=== PATIENT | female | born 1965 | race Caucasian/White ===

== ENCOUNTER 2017-04-21 03:36 | Inpatient (IN) | payer SELFPAY ==
[2017-04-21] MEDS ORDERED: Sodium Chloride 0.9% 1,000 ML IV ONE (03:58)
[2017-04-21] MEDS ORDERED: Ketorolac 30 MG/ML SDV IVPUSH ONE (04:00)
[2017-04-21] MEDS ORDERED: Ondansetron 4 MG/2 ML SDV IVPUSH ONE (04:01)
[2017-04-21] MEDS ORDERED: Morphine 2 MG/ML Syringe IVPUSH ONE (04:42)
[2017-04-21] MEDS ORDERED: Iopamidol 755 Mg/ML 100 ML Bottle IV SCH (05:15)
--- NOTE | 2017-04-21 06:15 | EDM.PDOC ---
ED HPI GENERAL MEDICAL PROBLEM - General Chief Complaint: Abdominal Pain Stated Complaint: ADB PAIN Time Seen by Provider: 04/21/17 03:40 Source of Information: Reports: Patient, Family - History of Present Illness INITIAL COMMENTS - FREE TEXT/NARRATIVE: 51 y.old w f S/P Total Hysterectomy, last Colonoscopy 3 years ago. came to the ed due to sudden onset of periumbilical pain with N/V. Pt is not able pass gas, but stool. No Dysuria, no F/C, no trauma. 143/83 pulse 62 No blood in stool. Onset: Today Onset Date: 04/20/17 Onset Time: 16:00 Duration: Hour(s): Location: Reports: Abdomen Quality: Reports: Ache, Burning, Dull, Pressure, Throbbing Severity: Moderate Improves with: Reports: Rest Worsens with: Reports: Movement Context: Reports: Other (?) Associated Symptoms: Reports: Nausea/Vomiting Treatments [employer]GER [employer]: Reports: NSAIDS, Other (see below) Other Treatments [employer]GER [employer]: pepto-bismol Abdomen Pain Score (Numeric/FACES): 10 - Related Data Allergies Allergy/AdvReac Type Severity Reaction Status Date / Time No Known Allergies Allergy Verified 04/21/17 03:52 Home Meds: Home Meds Levothyroxine [Synthroid] 50 mcg PO ACBREAKFAST 04/21/17 [History] Past Medical History Endocrine/Metabolic History: Reports: Hypothyroidism - Past Surgical History HEENT Surgical History: Reports: Tonsillectomy, Other (See Below) Other HEENT Surgeries/Procedures: [place] teeth extraction Social & Family History - Family History Family Medical History: Noncontributory - Tobacco Use Smoking Status *Q: Never Smoker - Caffeine Use Caffeine Use: Reports: None - Recreational Drug Use Recreational Drug Use: No ED ROS GENERAL - Review of Systems Review Of Systems: See Below Constitutional: Reports: No Symptoms HEENT: Reports: No Symptoms Respiratory: Reports: No Symptoms Cardiovascular: Reports: No Symptoms Endocrine: Reports: No Symptoms GI/Abdominal: Reports: Abdominal Pain : Reports: No Symptoms Musculoskeletal: Reports: No Symptoms Skin: Reports: No Symptoms Neurological: Reports: No Symptoms Psychiatric: Reports: No Symptoms Hematologic/Lymphatic: Reports: No Symptoms Immunologic: Reports: No Symptoms ED EXAM, GI/ABD - Physical Exam Exam: See Below Exam Limited By: No Limitations General Appearance: Alert, WD/WN, Moderate Distress Eyes: Bilateral: Normal Appearance Ears: Normal External Exam Nose: Normal Inspection Throat/Mouth: Normal Inspection Head: Atraumatic, Normocephalic Neck: Normal Inspection, Supple Respiratory/Chest: No Respiratory Distress, Lungs Clear, Normal Breath Sounds Cardiovascular: Normal Peripheral Pulses, Regular Rate, Rhythm, No Edema, No Gallop, No JVD GI/Abdominal Exam: Distended, Abnormal Bowel Sounds (Female) Exam: Deferred Rectal (Female) Exam: Deferred Back Exam: Normal Inspection, Full Range of Motion Extremities: Normal Inspection, Normal Range of Motion, Non-Tender, No Pedal Edema Neurological: Alert, Oriented, CN II-XII Intact, Normal Cognition, Normal Gait Psychiatric: Normal Affect, Normal Mood Skin Exam: Warm, Dry, Intact, Normal Color, No Rash Lymphatic: No Adenopathy Course - Vital Signs Text/Narrative:: 51 y.old w f S/P Total Hysterectomy, last Colonoscopy 3 years ago. came to the ed due to sudden onset of periumbilical pain with N/V. Pt is not able pass gas, but stool. No Dysuria, no F/C, no trauma. 143/83 pulse 62 No blood in stool. PE: Mid abd. pain with hyperactive BS Labs: WBC 12.5 H?H nl Na 149 K 3.7 BUN 21 Cr. 1.0 Imaging: CT abd. SMO with thick walled collapsed segment of Terminal Ileum Impression: SMO with thick walled collapsed segment of Terminal Ileum Tx: Zofran, Morphin and NG tube with low volume suction, intermittent 6.[address] Monsivais, surgeon: Will see pt at the [facility], NG tube with low volume suction Plan: Admit t o [facility]. Last Recorded V/S: Last Vital Signs Temp 36.6 C 04/21/17 05:31 Pulse 71 04/21/17 05:31 Resp 18 04/21/17 05:31 BP 122/66 04/21/17 05:31 Pulse Ox 100 04/21/17 05:31 - Orders/Labs/Meds Orders: Active Orders 24 hr Category Date Time Status Patient Status [ADT] Routine ADT 04/21/17 06:16 Ordered Bedrest Bedside Commode [RC] ASDIRECTED Care 04/21/17 06:16 Ordered Oxygen Therapy [RC] PRN Care 04/21/17 06:16 Ordered VTE/DVT Education [RC] Per Unit Routine Care 04/21/17 06:16 Ordered Vital Signs [RC] Q4H Care 04/21/17 06:16 Ordered Nothing per Oral Now Diet [DIET] Diet 04/21/17 Breakfast Ordered Abdomen Pelvis w Cont [CT] Stat Exams 04/21/17 04:28 Taken NG Tube Placement [CR] Stat Exams 04/21/17 06:21 Ordered Iopamidol [Isovue-370 (76%)] Med 04/21/17 05:15 Active 100 ml IV . DIRECTED Lactated Ringers @ 125 MLS/HR(1000ml) Med 04/21/17 06:30 Ordered Lactated Ringers [Ringers, Lactated] 1,000 ml IV ASDIRECTED Morphine Med 04/21/17 06:16 Ordered 2 mg IVPUSH Q2H PRN Ondansetron [Zofran] Med 04/21/17 06:16 Ordered 8 mg IV Q4H PRN Sodium Chloride 0.9% [Saline Flush] Med 04/21/17 06:16 Ordered 10 ml FLUSH ASDIRECTED PRN Peripheral IV Insertion Adult [OM.PC] Routine Oth 04/21/17 06:16 Ordered Resuscitation Status Routine Resus Stat 04/21/17 06:16 Ordered Medication Orders Lactated Ringer's (Ringers, Lactated) 1,000 mls @ 125 mls/hr IV ASDIRECTED WANDA Iopamidol (Isovue-370 (76%)) 100 ml IV . DIRECTED WANDA Last Admin: 04/21/17 05:15 Dose: 84 ml Morphine Sulfate (Morphine) 2 mg IVPUSH Q2H PRN PRN Reason: Pain (severe 7-10) Ondansetron HCl (Zofran) 8 mg IV Q4H PRN PRN Reason: Nausea/Vomiting Sodium Chloride (Saline Flush) 10 ml FLUSH ASDIRECTED PRN PRN Reason: Keep Vein Open Labs: Laboratory Tests 04/21/17 04/21/17 04/21/17 Range/Units 04:05 04:05 04:30 WBC 12.2 H (4.5-12.0) X10-3/uL RBC 4.19 (3.23-5.20) x10(6)uL Hgb 13.4 (11.5-15.5) g/dL Hct 38.6 (30.0-51.3) % MCV 92.1 (80-96) fL MCH 31.9 (27.7-33.6) pg MCHC 34.6 (32.2-35.4) g/dL RDW 12.3 (11.5-15.5) % Plt Count 236 (125-369) X10(3)uL MPV 8.4 (7.4-10.4) fL Neut % (Auto) 78.4 (46-82) % Lymph % (Auto) 15.2 (13-37) % [place] % (Auto) 5.2 (4-12) % Eos % (Auto) 1 (1.0-5.0) % Baso % (Auto) 0 (0-2) % Neut # (Auto) 9.6 H (1.6-8.3) # Lymph # (Auto) 1.9 (0.6-5.0) # [place] # (Auto) 0.6 (0.0-1.3) # Eos # (Auto) 0.1 (0.0-0.8) # Baso # (Auto) 0.0 (0.0-0.2) # Sodium 138 (135-145) mmol/L Potassium 3.7 (3.5-5.3) mmol/L Chloride 108 (100-110) mmol/L Carbon Dioxide 20 L (23-29) mmol/L BUN 21 H (5-20) mg/dL Creatinine 1.0 (0.6-1.3) mg/dL Est Cr Clr Drug Dosing 63.27 mL/min Estimated GFR (MDRD) 58 L (>60) BUN/Creatinine Ratio 21.0 H (9-20) Glucose 136 H (80-116) mg/dL Calcium 9.3 (8.6-10.2) mg/dL Urine Color Yellow (YELLOW) Urine Appearance Clear (CLEAR) Urine pH 7.0 H (5.0-6.5) Ur Specific [place] 1.010 (1.010-1.025) Urine Protein Negative (NEGATIVE) mg/dL Urine Glucose (UA) Normal (NEGATIVE) mg/dL Urine Ketones Negative (NEGATIVE) mg/dL Urine Occult Blood Negative (NEGATIVE) Urine Nitrite Negative (NEGATIVE) Urine Bilirubin Negative (NEGATIVE) Urine Urobilinogen Normal (NEGATIVE) mg/dL Ur Leukocyte Esterase Negative (NEGATIVE) Urine RBC 0-5 (0) Urine WBC 0-5 (0) Ur Squamous Epith Cells Occasional (NS,R,O) Urine Bacteria Rare H (NS) Meds: Medications Generic Name Dose Route Start Last Admin Trade Name [place] PRN Reason Stop Dose Admin Lactated Ringer's 1,000 mls @ 125 mls/hr 04/21/17 06:30 Ringers, Lactated IV ASDIRECTED WANDA Iopamidol 100 ml 04/21/17 05:15 04/21/17 05:15 Isovue-370 (76%) IV 84 ml . DIRECTED WANDA Administration Morphine Sulfate 2 mg 04/21/17 06:16 Morphine IVPUSH Q2H PRN Pain (severe 7-10) Ondansetron HCl 8 mg 04/21/17 06:16 Zofran IV Q4H PRN Nausea/Vomiting Sodium Chloride 10 ml 04/21/17 06:16 Saline Flush FLUSH ASDIRECTED PRN Keep Vein Open Discontinued Medications Generic Name Dose Route Start Last Admin Trade Name Freq PRN Reason Stop Dose Admin Sodium Chloride 1,000 mls @ 999 mls/hr 04/21/17 03:58 04/21/17 04:20 Normal Saline IV 04/21/17 04:58 999 mls/hr .BOLUS ONE Administration Ketorolac Tromethamine 30 mg 04/21/17 04:00 04/21/17 04:27 Toradol IVPUSH 04/21/17 04:01 30 mg ONETIME ONE Administration Morphine Sulfate 2 mg 04/21/17 04:42 04/21/17 05:22 Morphine IVPUSH 04/21/17 04:43 2 mg ONETIME ONE Administration Ondansetron HCl 8 mg 04/21/17 04:01 04/21/17 04:27 Zofran IVPUSH 04/21/17 04:02 8 mg ONETIME ONE Administration Departure - Departure Time of Disposition: 06:26 Disposition: Admitted As Inpatient 64 Condition: Fair Clinical Impression: Small bowel obstruction - Discharge Information Referrals: Deisi Holman, [employer] [Primary Care Provider] - Forms: ED Department Discharge - My Orders Last 24 Hours: My Active Orders 04/21/17 04:28 Abdomen Pelvis w Cont [CT] Stat 04/21/17 05:15 Iopamidol [Isovue-370 (76%)] 100 ml IV . DIRECTED 04/21/17 06:16 Patient Status [ADT] Routine Bedrest Bedside Commode [RC] ASDIRECTED Oxygen Therapy [RC] PRN VTE/DVT Education [RC] Per Unit Routine Vital Signs [RC] Q4H Morphine 2 mg IVPUSH Q2H PRN Ondansetron [Zofran] 8 mg IV Q4H PRN Sodium Chloride 0.9% [Saline Flush] 10 ml FLUSH ASDIRECTED PRN Peripheral IV Insertion Adult [OM.PC] Routine Resuscitation Status Routine 04/21/17 06:21 NG Tube Placement [CR] Stat 04/21/17 06:30 Lactated Ringers @ 125 MLS/HR(1000ml) Lactated Ringers [Ringers, Lactated] 1, 000 ml IV ASDIRECTED 04/21/17 Breakfast Nothing per Oral Now Diet [DIET] - Assessment/Plan Last 24 Hours: My Active Orders 04/21/17 04:28 Abdomen Pelvis w Cont [CT] Stat 04/21/17 05:15 Iopamidol [Isovue-370 (76%)] 100 ml IV . DIRECTED 04/21/17 06:16 Patient Status [ADT] Routine Bedrest Bedside Commode [RC] ASDIRECTED Oxygen Therapy [RC] PRN VTE/DVT Education [RC] Per Unit Routine Vital Signs [RC] Q4H Morphine 2 mg IVPUSH Q2H PRN Ondansetron [Zofran] 8 mg IV Q4H PRN Sodium Chloride 0.9% [Saline Flush] 10 ml FLUSH ASDIRECTED PRN Peripheral IV Insertion Adult [OM.PC] Routine Resuscitation Status Routine 04/21/17 06:21 NG Tube Placement [CR] Stat 04/21/17 06:30 Lactated Ringers @ 125 MLS/HR(1000ml) Lactated Ringers [Ringers, Lactated] 1, 000 ml IV ASDIRECTED 04/21/17 Breakfast Nothing per Oral Now Diet [DIET]
[2017-04-21] MEDS ORDERED: Sodium Chloride 0.9% 10 ML Syringe FLUSH PRN (06:16)
[2017-04-21] MEDS ORDERED: Ondansetron 4 MG/2 ML SDV IV PRN (06:16)
[2017-04-21] MEDS: Lactated Ringers 1,000 ML IV SCH ×2 (06:56→16:05)
[2017-04-21] MEDS: Morphine 2 MG/ML Syringe IVPUSH PRN ×2 (07:01→09:01)
[2017-04-21] MEDS ORDERED: Lidocaine 2% Jelly 5 ML Urojet MUCMEM ONE (10:31)
[2017-04-21] MEDS ORDERED: Promethazine 12.5 MG in Sodium Chloride 0.9% 50 ML IV PRN (10:43)
[2017-04-21] MEDS: Ketorolac 30 MG/ML SDV IVPUSH SCH ×3 (10:51→21:57)
[2017-04-21] MEDS: Hydrocortisone Sodium Succinate 100 MG/2 ML SDV IV SCH ×2 (10:51→21:55)
[2017-04-21] MEDS: Ciprofloxacin in D5W 400 MG in Premix Bag 1 BAG IV SCH ×4 (11:11→21:54)
--- NOTE | 2017-04-21 12:40 | HP ---
ADMISSION DATE: 04/21/2017 HISTORY OF PRESENT ILLNESS: This 51-year-old female was admitted to the hospital after presenting to the emergency room early this morning with abdominal pain, nausea, and vomiting. This began earlier in the evening and progressed as a cramping pain throughout her abdomen. She had an emesis in the emergency room. CT scan was obtained which shows a partial obstruction in the distal small bowel. The etiology could be Crohn disease or infectious. She does have a history of prior hysterectomy. Nasogastric tube was inserted in the emergency room. There has been no return. The patient is experiencing discomfort from this. A KUB was obtained which showed this curled in the esophagus. This was withdrawn and I replaced this and appears to be functioning now. I will have another KUB obtained to confirm placement. PAST MEDICAL HISTORY: Previous hysterectomy. She has had 3 previous colonoscopies and has a history of polyps. Last colonoscopy was 3 years ago. MEDICAL ALLERGIES: Reviewed. REVIEW OF SYSTEMS: The patient denies chest pain, shortness of breath or respiratory difficulties. Denies any urinary symptoms. Last bowel movement was last night. She denies any fever sweats or chills. Has not traveled out of the region. FAMILY HISTORY: Negative for inflammatory bowel disease. PHYSICAL EXAMINATION: General: Reveals a pleasant lady who is uncomfortable from her abdominal cramping intermittently. Nasogastric tube was also causing discomfort. This feels better after it was replaced. Lungs: Clear. Respirations are nonlabored. Heart: Regular rate and rhythm without murmur. Abdomen: Soft and nontender. There are no masses or hernias palpable. ASSESSMENT: Partial distal small-bowel obstruction. PLAN: The patient will be started on IV Cipro and IV hydrocortisone. She will likely need colonoscopy when she feels better for further evaluation. /[id number] EMILIE/DAVE
[2017-04-22] MEDS: Lactated Ringers 1,000 ML IV SCH ×3 (01:15→18:21)
[2017-04-22] MEDS: Ketorolac 30 MG/ML SDV IVPUSH SCH ×4 (04:23→22:21)
[2017-04-22] MEDS ORDERED: Benzocaine/Cetylpyridinium/Menthol Lozenge MUCMEM PRN (10:13)
--- NOTE | 2017-04-22 10:19 | PCM.SURGPN ---
- General Info Date of Service: 04/22/17 Functional Status: Reports: Pain Controlled - Review of Systems General: Reports: No Symptoms Pulmonary: Reports: No Symptoms Cardiovascular: Reports: No Symptoms Gastrointestinal: Reports: Flatus (this am, no BM), Other (Minimal dark NG output) - Patient Data Vitals - Most Recent: Last Vital Signs Temp 97.9 F 04/22/17 08:00 Pulse 67 04/22/17 08:00 Resp 18 04/22/17 08:00 BP 106/64 04/22/17 08:00 Pulse Ox 97 04/22/17 08:00 Weight - Most Recent: 64.637 kg I&O - Last 24 Hours: Intake & Output 04/21/17 04/22/17 04/22/17 22:59 06:59 14:59 Intake Total 624 Output Total 800 300 Balance -176 -300 Lab Results Last 24 Hrs: Laboratory Results - last 24 hr 04/22/17 Range/Units 06:25 WBC 8.7 (4.5-12.0) X10-3/uL RBC 3.72 (3.23-5.20) x10(6)uL Hgb 11.3 L (11.5-15.5) g/dL Hct 34.2 (30.0-51.3) % MCV 92.0 (80-96) fL MCH 30.3 (27.7-33.6) pg MCHC 32.9 (32.2-35.4) g/dL RDW 12.2 (11.5-15.5) % Plt Count 203 (125-369) X10(3)uL MPV 8.2 (7.4-10.4) fL Neut % (Auto) 75.7 (46-82) % Lymph % (Auto) 17.4 (13-37) % [place] % (Auto) 6.5 (4-12) % Eos % (Auto) 0 L (1.0-5.0) % Baso % (Auto) 0 (0-2) % Neut # (Auto) 6.6 (1.6-8.3) # Lymph # (Auto) 1.5 (0.6-5.0) # [place] # (Auto) 0.6 (0.0-1.3) # Eos # (Auto) 0.0 (0.0-0.8) # Baso # (Auto) 0.0 (0.0-0.2) # Med Orders - Current: Current Medications Benzocaine/Menthol (Cepacol Sore Throat) 1 lozenge MUCMEM 6XDAY PRN PRN Reason: Pain (moderate 4-6) Hydrocortisone Sodium Succinate (Solu-Cortef) 75 mg IV Q12H [facility] Stop: 04/23/17 22:01 Last Admin: 04/21/17 21:55 Dose: 75 mg Lactated Ringer's (Ringers, Lactated) 1,000 mls @ 125 mls/hr IV ASDIRECTED [facility] Last Admin: 04/22/17 09:04 Dose: 125 mls/hr Ciprofloxacin/Dextrose 400 mg/ (Premix) 200 mls @ 200 mls/hr IV Q12H [facility] Last Admin: 04/21/17 21:54 Dose: 200 mls/hr Promethazine HCl 12.5 mg/ (Sodium Chloride) 50.5 mls @ 200 mls/hr IV Q6H PRN PRN Reason: Nausea/Vomiting Last Admin: 04/21/17 11:45 Dose: 200 mls/hr Iopamidol (Isovue-370 (76%)) 100 ml IV . DIRECTED [facility] Last Admin: 04/21/17 05:15 Dose: 84 ml Ketorolac Tromethamine (Toradol) 30 mg IVPUSH Q6H [facility] Stop: 04/26/17 09:52 Last Admin: 04/22/17 04:23 Dose: 30 mg Morphine Sulfate (Morphine) 2 mg IVPUSH Q2H PRN PRN Reason: Pain (severe 7-10) Last Admin: 04/21/17 09:01 Dose: 2 mg Ondansetron HCl (Zofran) 8 mg IV Q4H PRN PRN Reason: Nausea/Vomiting Last Admin: 04/21/17 08:36 Dose: 8 mg Pantoprazole Sodium (Protonix Iv) 40 mg IVPUSH Q24H [facility] Sodium Chloride (Saline Flush) 10 ml FLUSH ASDIRECTED PRN PRN Reason: Keep Vein Open Discontinued Medications Sodium Chloride (Normal Saline) 1,000 mls @ 999 mls/hr IV .BOLUS ONE Stop: 04/21/17 04:58 Last Admin: 04/21/17 04:20 Dose: 999 mls/hr Ketorolac Tromethamine (Toradol) 30 mg IVPUSH ONETIME ONE Stop: 04/21/17 04:01 Last Admin: 04/21/17 04:27 Dose: 30 mg Lidocaine HCl (Xylocaine 2% Jelly) 5 ml MUCMEM ONETIME ONE Stop: 04/21/17 10:32 Last Admin: 04/21/17 10:46 Dose: 5 ml Morphine Sulfate (Morphine) 2 mg IVPUSH ONETIME ONE Stop: 04/21/17 04:43 Last Admin: 04/21/17 05:22 Dose: 2 mg Ondansetron HCl (Zofran) 8 mg IVPUSH ONETIME ONE Stop: 04/21/17 04:02 Last Admin: 04/21/17 04:27 Dose: 8 mg - Exam GI/Abdominal Exam: Soft, Non-Tender - Problem List Review Problem List Initiated/Reviewed/Updated: Yes - My Orders Last 24 Hours: Active Orders 24 hr Category Date Time Status KUB [Abdomen 1V Flat] [CR] Routine Exams 04/21/17 09:48 Taken KUB [Abdomen 1V Flat] [CR] Routine Exams 04/21/17 14:41 Taken Small Bowel w Serial Film [CR] Routine Exams 04/23/17 08:00 Ordered Benzocaine/Cetylpyrd/Menthol [Cepacol Sore Throat] Med 04/22/17 10:13 Ordered 1 lozenge MUCMEM 6XDAY PRN Ciprofloxacin in D5W [Cipro in D5W 400 MG/200 ML] 400 Med 04/21/17 10:30 Active mg Premix Bag 1 bag IV Q12H Hydrocortisone Sod Succinate [Solu-CORTEF] Med 04/21/17 10:00 Active 75 mg IV Q12H Ketorolac [Toradol] Med 04/21/17 10:00 Active 30 mg IVPUSH Q6H Pantoprazole [ProTONIX IV] Med 04/22/17 10:15 Ordered 40 mg IVPUSH Q24H Promethazine [Phenergan] 12.5 mg Med 04/21/17 10:43 Active Sodium Chloride 0.9% [Normal Saline] 50 ml IV Q6H Medication Orders Benzocaine/Menthol (Cepacol Sore Throat) 1 lozenge MUCMEM 6XDAY PRN PRN Reason: Pain (moderate 4-6) Hydrocortisone Sodium Succinate (Solu-Cortef) 75 mg IV Q12H [facility] Stop: 04/23/17 22:01 Last Admin: 04/21/17 21:55 Dose: 75 mg Admin: 04/21/17 10:51 Dose: 75 mg Lactated Ringer's (Ringers, Lactated) 1,000 mls @ 125 mls/hr IV ASDIRECTED [facility] Last Admin: 04/22/17 09:04 Dose: 125 mls/hr Infusion: 04/22/17 09:04 Dose: 125 mls/hr Admin: 04/22/17 01:15 Dose: 125 mls/hr Infusion: 04/22/17 00:05 Dose: 125 mls/hr Admin: 04/21/17 16:05 Dose: 125 mls/hr Infusion: 04/21/17 14:56 Dose: 125 mls/hr Admin: 04/21/17 06:56 Dose: 125 mls/hr Ciprofloxacin/Dextrose 400 mg/ (Premix) 200 mls @ 200 mls/hr IV Q12H [facility] Last Admin: 04/21/17 21:54 Dose: 200 mls/hr Infusion: 04/21/17 12:11 Dose: 200 mls/hr Admin: 04/21/17 11:11 Dose: 200 mls/hr Promethazine HCl 12.5 mg/ (Sodium Chloride) 50.5 mls @ 200 mls/hr IV Q6H PRN PRN Reason: Nausea/Vomiting Last Admin: 04/21/17 11:45 Dose: 200 mls/hr Iopamidol (Isovue-370 (76%)) 100 ml IV . DIRECTED [facility] Last Admin: 04/21/17 05:15 Dose: 84 ml Ketorolac Tromethamine (Toradol) 30 mg IVPUSH Q6H [facility] Stop: 04/26/17 09:52 Last Admin: 04/22/17 04:23 Dose: 30 mg Admin: 04/21/17 21:57 Dose: 30 mg Admin: 04/21/17 15:55 Dose: 30 mg Admin: 04/21/17 10:51 Dose: 30 mg Morphine Sulfate (Morphine) 2 mg IVPUSH Q2H PRN PRN Reason: Pain (severe 7-10) Last Admin: 04/21/17 09:01 Dose: 2 mg Admin: 04/21/17 07:01 Dose: 2 mg Ondansetron HCl (Zofran) 8 mg IV Q4H PRN PRN Reason: Nausea/Vomiting Last Admin: 04/21/17 08:36 Dose: 8 mg Pantoprazole Sodium (Protonix Iv) 40 mg IVPUSH Q24H WANDA Sodium Chloride (Saline Flush) 10 ml FLUSH ASDIRECTED PRN PRN Reason: Keep Vein Open - Assessment Assessment (Free Text/Narrative):: P SBO - Plan Plan (Free Text/Narrative):: Will keep NG in place and get SBFT in am
[2017-04-22] MEDS: Ciprofloxacin in D5W 400 MG in Premix Bag 1 BAG IV SCH ×4 (10:24→22:27)
[2017-04-22] MEDS: Hydrocortisone Sodium Succinate 100 MG/2 ML SDV IV SCH ×2 (10:24→22:25)
[2017-04-22] MEDS: Pantoprazole 40 MG Vial IVPUSH SCH (10:51)
[2017-04-23] MEDS: Lactated Ringers 1,000 ML IV SCH (03:26)
[2017-04-23] MEDS: Ketorolac 30 MG/ML SDV IVPUSH SCH ×2 (03:31→10:15)
[2017-04-23 08:23] VITALS: BP 119/63
[2017-04-23] MEDS: Hydrocortisone Sodium Succinate 100 MG/2 ML SDV IV SCH (10:09)
[2017-04-23] MEDS: Pantoprazole 40 MG Vial IVPUSH SCH (10:16)
--- NOTE | 2017-04-23 10:16 | PCM.SURGPN ---
- General Info Date of Service: 04/23/17 Functional Status: Reports: Pain Controlled - Review of Systems General: Reports: No Symptoms Gastrointestinal: Reports: Flatus - Patient Data Vitals - Most Recent: Last Vital Signs Temp 98.3 F 04/23/17 08:15 Pulse 70 04/23/17 08:15 Resp 16 04/23/17 08:15 BP 119/63 04/23/17 08:15 Pulse Ox 96 04/23/17 08:15 Weight - Most Recent: 64.637 kg I&O - Last 24 Hours: Intake & Output 04/22/17 04/23/17 04/23/17 22:59 06:59 14:59 Intake Total 1276 1003 Output Total 475 50 Balance 801 953 Imaging Impressions - Last 24 Hrs: SBFT shows Barium into colon within 30 min Med Orders - Current: Current Medications Benzocaine/Menthol (Cepacol Sore Throat) 1 lozenge MUCMEM 6XDAY PRN PRN Reason: Pain (moderate 4-6) Hydrocortisone Sodium Succinate (Solu-Cortef) 75 mg IV Q12H [facility] Stop: 04/23/17 22:01 Last Admin: 04/22/17 22:25 Dose: 75 mg Lactated Ringer's (Ringers, Lactated) 1,000 mls @ 125 mls/hr IV ASDIRECTED [facility] Last Admin: 04/23/17 03:26 Dose: 125 mls/hr Ciprofloxacin/Dextrose 400 mg/ (Premix) 200 mls @ 200 mls/hr IV Q12H [facility] Last Admin: 04/22/17 22:27 Dose: 200 mls/hr Promethazine HCl 12.5 mg/ (Sodium Chloride) 50.5 mls @ 200 mls/hr IV Q6H PRN PRN Reason: Nausea/Vomiting Last Admin: 04/21/17 11:45 Dose: 200 mls/hr Iopamidol (Isovue-370 (76%)) 100 ml IV . DIRECTED [facility] Last Admin: 04/21/17 05:15 Dose: 84 ml Ketorolac Tromethamine (Toradol) 30 mg IVPUSH Q6H [facility] Stop: 04/26/17 09:52 Last Admin: 04/23/17 03:31 Dose: 30 mg Morphine Sulfate (Morphine) 2 mg IVPUSH Q2H PRN PRN Reason: Pain (severe 7-10) Last Admin: 04/21/17 09:01 Dose: 2 mg Ondansetron HCl (Zofran) 8 mg IV Q4H PRN PRN Reason: Nausea/Vomiting Last Admin: 04/21/17 08:36 Dose: 8 mg Pantoprazole Sodium (Protonix Iv) 40 mg IVPUSH Q24H [facility] Last Admin: 04/22/17 10:51 Dose: 40 mg Sodium Chloride (Saline Flush) 10 ml FLUSH ASDIRECTED PRN PRN Reason: Keep Vein Open Discontinued Medications Sodium Chloride (Normal Saline) 1,000 mls @ 999 mls/hr IV .BOLUS ONE Stop: 04/21/17 04:58 Last Admin: 04/21/17 04:20 Dose: 999 mls/hr Ketorolac Tromethamine (Toradol) 30 mg IVPUSH ONETIME ONE Stop: 04/21/17 04:01 Last Admin: 04/21/17 04:27 Dose: 30 mg Lidocaine HCl (Xylocaine 2% Jelly) 5 ml MUCMEM ONETIME ONE Stop: 04/21/17 10:32 Last Admin: 04/21/17 10:46 Dose: 5 ml Morphine Sulfate (Morphine) 2 mg IVPUSH ONETIME ONE Stop: 04/21/17 04:43 Last Admin: 04/21/17 05:22 Dose: 2 mg Ondansetron HCl (Zofran) 8 mg IVPUSH ONETIME ONE Stop: 04/21/17 04:02 Last Admin: 04/21/17 04:27 Dose: 8 mg - Exam GI/Abdominal Exam: Soft, Non-Tender - Problem List Review Problem List Initiated/Reviewed/Updated: Yes - My Orders Last 24 Hours: Active Orders 24 hr Category Date Time Status Clear Liquid Diet [DIET] Diet 04/23/17 Lunch Ordered Small Bowel w Serial Film [CR] Routine Exams 04/23/17 08:00 Taken Benzocaine/Cetylpyrd/Menthol [Cepacol Sore Throat] Med 04/22/17 10:13 Active 1 lozenge MUCMEM 6XDAY PRN Pantoprazole [ProTONIX IV] Med 04/22/17 10:15 Active 40 mg IVPUSH Q24H NG [Nasogastric Orogastric Tube Removal] [OM.PC] Oth 04/23/17 10:10 Ordered Routine Medication Orders Benzocaine/Menthol (Cepacol Sore Throat) 1 lozenge MUCMEM 6XDAY PRN PRN Reason: Pain (moderate 4-6) Hydrocortisone Sodium Succinate (Solu-Cortef) 75 mg IV Q12H [facility] Stop: 04/23/17 22:01 Last Admin: 04/22/17 22:25 Dose: 75 mg Admin: 04/22/17 10:24 Dose: 75 mg Admin: 04/21/17 21:55 Dose: 75 mg Admin: 04/21/17 10:51 Dose: 75 mg Lactated Ringer's (Ringers, Lactated) 1,000 mls @ 125 mls/hr IV ASDIRECTED [facility] Last Admin: 04/23/17 03:26 Dose: 125 mls/hr Infusion: 04/23/17 02:21 Dose: 125 mls/hr Admin: 04/22/17 18:21 Dose: 125 mls/hr Infusion: 04/22/17 17:04 Dose: 125 mls/hr Admin: 04/22/17 09:04 Dose: 125 mls/hr Infusion: 04/22/17 09:04 Dose: 125 mls/hr Admin: 04/22/17 01:15 Dose: 125 mls/hr Infusion: 04/22/17 00:05 Dose: 125 mls/hr Admin: 04/21/17 16:05 Dose: 125 mls/hr Infusion: 04/21/17 14:56 Dose: 125 mls/hr Admin: 04/21/17 06:56 Dose: 125 mls/hr Ciprofloxacin/Dextrose 400 mg/ (Premix) 200 mls @ 200 mls/hr IV Q12H [facility] Last Admin: 04/22/17 22:27 Dose: 200 mls/hr Infusion: 04/22/17 11:24 Dose: 200 mls/hr Admin: 04/22/17 10:24 Dose: 200 mls/hr Infusion: 04/21/17 22:54 Dose: 200 mls/hr Admin: 04/21/17 21:54 Dose: 200 mls/hr Infusion: 04/21/17 12:11 Dose: 200 mls/hr Admin: 04/21/17 11:11 Dose: 200 mls/hr Promethazine HCl 12.5 mg/ (Sodium Chloride) 50.5 mls @ 200 mls/hr IV Q6H PRN PRN Reason: Nausea/Vomiting Last Admin: 04/21/17 11:45 Dose: 200 mls/hr Iopamidol (Isovue-370 (76%)) 100 ml IV . DIRECTED [facility] Last Admin: 04/21/17 05:15 Dose: 84 ml Ketorolac Tromethamine (Toradol) 30 mg IVPUSH Q6H [facility] Stop: 04/26/17 09:52 Last Admin: 04/23/17 03:31 Dose: 30 mg Admin: 04/22/17 22:21 Dose: 30 mg Admin: 04/22/17 16:51 Dose: 30 mg Admin: 04/22/17 10:20 Dose: 30 mg Admin: 04/22/17 04:23 Dose: 30 mg Admin: 04/21/17 21:57 Dose: 30 mg Admin: 04/21/17 15:55 Dose: 30 mg Admin: 04/21/17 10:51 Dose: 30 mg Morphine Sulfate (Morphine) 2 mg IVPUSH Q2H PRN PRN Reason: Pain (severe 7-10) Last Admin: 04/21/17 09:01 Dose: 2 mg Admin: 04/21/17 07:01 Dose: 2 mg Ondansetron HCl (Zofran) 8 mg IV Q4H PRN PRN Reason: Nausea/Vomiting Last Admin: 04/21/17 08:36 Dose: 8 mg Pantoprazole Sodium (Protonix Iv) 40 mg IVPUSH Q24H [facility] Last Admin: 04/22/17 10:51 Dose: 40 mg Sodium Chloride (Saline Flush) 10 ml FLUSH ASDIRECTED PRN PRN Reason: Keep Vein Open - Assessment Assessment (Free Text/Narrative):: PSBO resolving - Plan Plan (Free Text/Narrative):: Will D/C NG and start clear liquids Will return tomorrow for colonoscopy
[2017-04-23] MEDS: Ciprofloxacin in D5W 400 MG in Premix Bag 1 BAG IV SCH ×2 (10:45)
--- NOTE | 2017-04-23 10:52 | CR ---
INDICATION: Partial small-bowel obstruction on previous abdomen x-ray of 2016. SMALL BOWEL SERIES: Examination of the small bowel was obtained with serial images, immediate, 15, 30, and 60 minute-plus images revealed minimal narrowing of the distalmost terminal ileum, which may be incidental, but could be on the basis of inflammation. The dilated loops of small bowel seen on previous CT of 04/21/2017 are no longer visualized, and no definite area of narrowing of the small bowel was identified to suggest a specific etiology for this appearance. However, Crohn's disease is most highly suspected, since there did appear to be a possible obstructive process in the mid small bowel and there was thickening of the wall of the terminal ileum on CT also noted. Partial reflux of the appendix was noted. IMPRESSION: At this time there is no evidence of a mechanically obstructive process of the small bowel with flow into the colon at 60 minutes and no definite focal area of obstruction identified in the small bowel loops. There may be some narrowing at the distalmost terminal ileum compatible with some residual inflammation in that area. Crohn's disease may be a possible etiology - infection felt to be somewhat less likely. Report was given in person to Dr. Monsivais at 0955 hours, 04/23/2017. ELDER
--- NOTE | 2017-04-23 11:01 | CR ---
INDICATION: Pain, nasogastric tube placement. ABDOMEN ONE VIEW, FLAT: Two views of the abdomen were obtained supine after a CT of the abdomen and revealed contrast in the urinary bladder and pyelocaliceal systems. No obstructive uropathy or definite bladder abnormality could be identified in those contrast-enhanced areas. Grommets are noted overlying the upper pelvis. Multiple loops of somewhat dilated small bowel are noted, raising question of an obstructive process, possibly of mechanical nature, possibly a localized paralytic ileus. This should be correlated clinically. On one view, the nasogastric tube is noted in the distal esophagus doubled upon itself. Dextroconvex scoliosis with rotatory component is noted of mild to moderate degree in the lumbar spine with moderate bridging hyperostotic changes off vertebral bodies of the lumbar levels. IMPRESSION: 1. Possible small-bowel obstruction of mechanical nature. Follow-up recommended. 2. Nasogastric tube is noted doubled upon itself in the distal esophagus. MTDD
--- NOTE | 2017-04-23 11:13 | CR ---
INDICATION: Tube placement follow-up. ABDOMEN: Two supine images of the abdomen were obtained, continuing to show dilated loops of small bowel proximally - jejunum, with the more distal bowel not distended. This suggests the possibility of either a localized paralytic ileus or more likely a mechanically obstructive process of the mid small bowel. Nasogastric tube is noted with its tip in the gastric fundus, its secondary side opening is in the distal esophagus. Advance of the tube of approximately 15 cm is recommended for better positioning. MTDD
== END 2017-04-23 12:20 | disposition home or self-care (01) | DRG 390 ==
LOC: FB.ED 03:36 → FB.MS 06:16
PROVIDERS: ADMIT Surgery; ATTEND Surgery
DX: K56.69 Other intestinal obstruction (principal); E03.9 Hypothyroidism, unspecified; Z90.710 Acquired absence of both cervix and uterus
CPT/HCPCS: 36415; 74000; 74177; 74250; 80048; 81001; 85025; 96361; 96374; 96375; 99221; 99231; 99284; 99285; A9270-GY; C9113; J0744; J1720; J1885; J2270; J2405; J2550; J7040; J7050; J7120; Q9967

== ENCOUNTER 2017-04-24 06:48 | Day surgery (SDC) | payer SELFPAY ==
[~2017-04-24 06:48] MED LIST: Lactated Ringers 1,000 ML IV SCH; Sodium Chloride 0.9% 10 ML Syringe FLUSH PRN
[2017-04-24] MEDS ORDERED: Propofol 200 MG/20 ML SDV IV ONE (08:00)
--- NOTE | 2017-04-24 09:06 | PCM.HPR ---
H & P Addendum review - H & P Addendum Review Date of Original H & P: 04/21/17 Date Reviewed: 04/24/17 Time Reviewed: 08:00 Patient was Examined: No Changes (ok to proceed with colonoscopy)
--- NOTE | 2017-04-24 09:07 | PCM.OPNOTE ---
- General Post-Op/Procedure Note Date of Surgery/Procedure: 04/24/17 Operative Procedure(s): Colonoscopy with Bx Findings: normal to TI Pre Op Diagnosis: PSBO; abnormal CT Post-Op Diagnosis: Same Anesthesia Technique: MAC Primary Surgeon: Haile Monsivais Anesthesia Provider: Ramy Puckett EBL in mLs: 0 Complications: None Condition: Good
--- NOTE | 2017-04-24 09:33 | OR ---
DATE OF OPERATION: 04/24/2017 SURGEON: Haile Monsivais MD PREOPERATIVE DIAGNOSES: 1. Abnormal CT scan of the abdomen. 2. Partial small bowel obstruction at terminal ileum. POSTOPERATIVE DIAGNOSIS: Normal colonoscopy. PROCEDURE: Colonoscopy with biopsy. ANESTHESIA: IV sedation. DESCRIPTION OF PROCEDURE: The patient was brought to the procedure room where she was placed on her left side, and IV sedation administered. Digital rectal exam was performed which was normal. Colonoscope was inserted and advanced to the level of the cecum. I was then able to intubate into the terminal ilium and see the distal 10 cm. Mucosal surfaces appeared normal. There was no inflammation. I did take 4 biopsies from the terminal ileum. Scope was then withdrawn through the remaining colon. The ascending, transverse, and descending colon were normal. Sigmoid colon and rectum were normal. There was some retained stool and some barium from her small bowel follow-through yesterday, but mucosal surfaces were well enough visualized to ensure that no polyps over 6 mm were present. Air was removed, and the scope withdrawn. The patient tolerated the procedure well and returned to recovery in stable condition. Recommend colonoscopy in 5 years for history of polyps. /[id number] EMILIE/DAVE
[2017-04-24 10:39] VITALS: BP 129/80
== END 2017-04-24 10:02 | disposition home or self-care (01) ==
LOC: FB.SDS 06:48
PROVIDERS: ATTEND Surgery
DX: K56.69 Other intestinal obstruction (principal); Z79.899 Other long term (current) drug therapy; Z90.710 Acquired absence of both cervix and uterus
CPT/HCPCS: 00810; 45380; 88305; J2704; J7050; J7120